=== PATIENT | male | born 1965 | race Caucasian/White ===

== ENCOUNTER → 2021-03-06 | Day surgery (SDC) | payer OTHER ==
[~2021-03-06] VITALS: Ht 175.3 cm; Wt 79.0 kg
[~2021-03-06] MED LIST: NORCO 5-325 TA1 EACH PO; NORVASC 10MG TA10 MG PO; ONDANSETRON ODT8 MG PO; PANTOPRAZOLE SO40 MG PO; ZOFRAN4 MG PO
[2021-03-06 11:24] LABS: HCT 47.7 % (42.0-52.0); MCH 30.7 pg (25.0-31.0); MCHC 35.6 g/dL (32.0-36.0); MCV 86.3 fL (78.0-100.0); MPV 9.1 fL (6.0-9.5); RBC 5.53 M/uL (4.70-6.00); WBC 5.8 K/uL (4.0-10.5)
[2021-03-06 11:38] LABS: ALBUMIN 4.3 g/dL (3.4-5.0); BILIRUBIN - TOTAL 0.9 mg/dL (0.2-1.0); BUN/CREAT RATIO (CALC) 17.7 RATIO; CREATININE 0.96 mg/dL (0.67-1.17); GLOBULIN (CALCULATION) 4.1 g/dL; TOTAL PROTEIN 8.4 g/dL (6.4-8.2)
== END | disposition home or self-care (01) ==
LOC: FAS 09:40
PROVIDERS: Surgery
DX: K57.30 Diverticulosis of large intestine without perforation or abscess without bleeding (principal); K21.9 Gastro-esophageal reflux disease without esophagitis; M19.90 Unspecified osteoarthritis, unspecified site; I10 Essential (primary) hypertension; G47.30 Sleep apnea, unspecified; Z85.038 Personal history of other malignant neoplasm of large intestine; Z87.891 Personal history of nicotine dependence; Z79.899 Other long term (current) drug therapy; Z88.5 Allergy status to narcotic agent; Z90.49 Acquired absence of other specified parts of digestive tract
CPT/HCPCS: 36415; 80053; 82378; J1610; J2250; J2704; J7120